=== PATIENT | male | born 1940 | race Caucasian/White ===

== ENCOUNTER → 2017-07-27 | Outpatient (CLI) | payer MEDICARE, OTHER ==
[~2017-07-27] MED LIST: IODIXANOL LOCM 100 ML BTL ONE; SOD CHLORIDE 0.9% 100 ML ONE
[2017-07-27 10:24] LABS: ALBUMIN 3.1 g/dl (3.3-4.9); ALBUMIN/GLOBULIN RATIO 0.93; BILIRUBIN,INDIRECT 0.3 mg/dl (0-1.1); BILIRUBIN,TOTAL 0.3 mg/dl (0.2-1.3); CALCIUM 8.9 mg/dl (8.4-10.2); CREATININE 0.75 mg/dl (0.61-1.24); TOTAL PROTEIN 6.4 g/dl (6.1-8.1)
[2017-07-27 10:46] LABS: CARCINOEMBRYONIC ANTIGEN 2.9 ng/ml (0.0-5.0)
--- NOTE | 2017-07-28 11:50 | RADRPT ---
PROCEDURE: CT Chest, Abdomen and Pelvis [<with>] contrast. CLINICAL INDICATION: [<Esophageal cancer. Follow-up.>] Status post surgery. Staging. TECHNIQUE: CT scan of the chest, abdomen, and pelvis [<with>] contrast was performed on a [facility] high-resolution CT scanner. The patient was scanned [<following the uncomplicated intravenou s administration of 100 cc of Omnipaque 300>] intravenous contrast. Coronal and sagittal reformatte d images were obtained from the axial source images. Images were reviewed on a high-resolution PACS workstation. The total exam CTDI equals 6.29 mGy and the total exam DLP equals 461.66. One or more of the following dose reduction techniques were used: - Automated exposure control. - Adjustment of the mA and/or kV according to patient size. - Use of iterative reconstruction technique. COMPARISON: CT scan 05/19/2017 FINDINGS: ONCOLOGICAL FINDINGS Measurable disease: None Non-measurable disease: None New disease: None ADDITIONAL FINDINGS CT chest: Postsurgical changes are seen from previous esophagectomy with gastric pull-through procedure. The c ollapsed and decompressed stomach is seen situated along the posteromedial margin of the right lower chest cavity. The surgical margins are unremarkable in appearance. No recurrent mass lesion or adenopathy is ident ified within the chest and/or mediastinum. The appearances are overall stable when compared to the p rior study. Multifocal scarring and chronic fibrotic changes are seen along the periphery of the right middle lo be, left lingula, and lung bases. Patchy subsegmental atelectasis is seen in these regions as well. Sequela of radiation pneumonitis scattered throughout the lungs is a likely possibility. Tiny inflam matory micronodule is seen along the lateral periphery of the left upper lung, unchanged. Small left layering pleural effusion is seen with associated adjacent atelectasis, stable. Overall appearances are unchanged when compared to the previous CT scan. The mediastinum is unremarkable without evidence for mass or lymphadenopathy. Scattered small medias tinal nodes only are seen, not enlarged by size criteria and stable over time. The vascular structu res of the mediastinum are normal in course and caliber. Aortic vascular calcifications and coronar y artery calcifications are present. The heart size is normal with a large pericardial effusion, min imally increased in size when compared to the prior study. The axillary regions, subpectoral regions , and supraclavicular regions are all unremarkable. Tiny sub-centimeter nodule is seen within the ri ght lobe of the thyroid gland, too small to characterize and stable over time. The surrounding chest wall is unremarkable. Right upper chest Port-A-Cath is identified in good location with the tip in the superior vena cava. CT abdomen: The liver is normal in size and density without focal mass or intrahepatic biliary dilatation. The spleen is normal in size and homogeneous in density. The stomach is partially collapsed, but is joanne ssly unremarkable. The pancreas as visualized is normal. The gallbladder and biliary tree are unre markable and there is no evidence for biliary dilatation. The adrenal glands are symmetric and norm al. The kidneys are symmetrically unremarkable as well. No renal calculus or obstructive uropathy or mass lesion is seen. The aorta is of normal caliber. Aortic vascular calcifications are present. There is no retroperitoneal lymphadenopathy. The marleni hepatis region is clear. The bowel and me sentery, as visualized, are equally unremarkable. CT pelvis: The small bowel loops situated within the pelvis are unremarkable. The pelvic organs are remarkable for significant enlargement of the prostate gland which is impressing upon the base of the bladder, stable over time. The pelvic sidewalls and inguinal regions are clear. The sigmoid colon and rect um are all unremarkable. No mass or adenopathy is seen. No significant free fluid is seen within th e pelvis. No acute inflammation is seen. The surrounding osseous structures are remarkable for degenerative enthesopathy of the spine. No os teolytic or osteoblastic lesion is detected. IMPRESSION: 1. No mass, adenopathy, or evidence for residual/recurrent neoplasm. 2. Status post esophagectomy and gastric pull-through procedure. 3. Stable small layering left basilar pleural effusion. 4. Stable benign radiation pneumonitis along the periphery of the lungs. 5. Normal size heart with a slightly larger significant pericardial effusion. 6. Stable small scattered benign appearing mediastinal lymph nodes. 7. Enlarged prostate gland, stable over time. Correlate with PSA level. 8. Diffuse benign chronic age-related senescent changes, stable. RPTAT: HMJB .Ahmet Jordan MD, Date Time Electronically viewed and signed by .Ahmet Jordan MD, on 07/28/2017 11:49 .B/
== END | disposition home or self-care (01) ==
LOC: C/S 08:58
PROVIDERS: ATTEND Internal Medicine Hematology & Oncology
DX: C15.9 Malignant neoplasm of esophagus, unspecified (principal)
CPT/HCPCS: 71260; 74177; 80053; 82378; Q9967

== ENCOUNTER → 2017-10-05 | Outpatient (CLI) | payer MEDICARE, OTHER ==
[~2017-10-05] MED LIST changes: -IODIXANOL LOCM 100 ML BTL ONE; +IOHEXOL 300MG/ML 150 ML BTL ONE
--- NOTE | 2017-10-05 21:33 | RADRPT ---
PROCEDURE: CT Chest, Abdomen and Pelvis with contrast. CLINICAL INDICATION: Esophageal cancer. Staging. TECHNIQUE: CT scan of the chest, abdomen, and pelvis with intravenous contrast was performed with helical axial sections. The patient was scanned during intravenous injection of 100 ml of Omnipaque -300 intravenous contrast. 2-D coronal reformatted images were obtained from the axial source image s. Total exam DLP is 504.03 mGy-cm. CTDIvol is 6.45 MGy. One or more of the following dose reduct ion techniques were used: Automated exposure control, adjustment of the mA and/or kV according to pa tient size, use of iterative reconstruction technique. DICOM images are available. COMPARISON: CT scan of the chest, abdomen, and pelvis dated 07/27/2017. FINDINGS: CT chest: Mild scarring is present in the lungs, unchanged. The lungs are otherwise clear. There is no pulmonary nodule or mass lesion. There is no mediastinal or hilar lymphadenopathy or mass. Postsurgical changes are noted from previo us esophagectomy with gastric pull-through procedure. The collapsed and decompressed stomach is situ ated along the posterior medial margin of the right lower chest cavity. There is no evidence of resi dual or recurrent neoplastic disease. The thoracic aorta is not dilated. There is a small left pleural effusion, unchanged. There is no right pleural effusion or pneumothora x. There is a moderate to large pericardial effusion, unchanged. The right upper chest Port-A-Cath i s in good position with the tip in the superior vena cava. CT abdomen: The liver is normal in size and attenuation. There is no focal hepatic lesion. The gallbladder and bile ducts are normal. The spleen is normal in size. There is no focal splenic lesion. The pancreas is normal with no mass or evidence of pancreatitis. Both adrenals are normal with no enlargement or mass. Both kidneys demonstrate normal contrast enhancement. There is no renal mass or hydronephrosis. The abdominal aorta is not dilated. There is no retroperitoneal lymphadenopathy or mass. The bowel and mesentery are normal. There is no free fluid or free gas. CT pelvis: There is no pelvic lymphadenopathy or mass. The bladder is distal ureters are normal. The prostate is enlarged. The periappendiceal region is unremarkable with no evidence of appendicitis. The bowel and mesentery are normal. There is no free fluid or free gas. Osseous structures: There are degenerative changes of the spine. There is no fracture. There is no lytic or blastic les ion. IMPRESSION: 1. Status post esophagectomy and gastric pull-through procedure. 2. No evidence of residual or recurrent neoplastic disease. 3. Small left pleural effusion. 4. Mild pulmonary scarring bilaterally. 5. Moderate to large pericardial effusion. 6. Enlarged prostate. 7. Degenerative changes of the spine. 8. No other new abnormality. RPTAT: QQ .Donavan Ansari MD, MD Date Time Electronically viewed and signed by .Donavan Ansari MD, MD on 10/05/2017 21:32 .R/
== END | disposition home or self-care (01) ==
LOC: C/S 08:11
PROVIDERS: ATTEND Internal Medicine Hematology & Oncology
DX: C15.9 Malignant neoplasm of esophagus, unspecified (principal); Z90.49 Acquired absence of other specified parts of digestive tract; J90 Pleural effusion, not elsewhere classified; I31.3 Pericardial effusion (noninflammatory); N40.0 Benign prostatic hyperplasia without lower urinary tract symptoms
CPT/HCPCS: 71260; 74177; Q9967